=== PATIENT | female | born 2000 | race Two or more races ===

== ENCOUNTER 2020-11-08 05:07 | Inpatient (IN) | payer SELFPAY ==
[~2020-11-08] VITALS: Ht 170.2 cm; Wt 77.6 kg
[2020-11-08] VITALS (8 sets, daily range): BP systolic 51–113; BP diastolic 59–69
--- NOTE | 2020-11-08 05:20 | NUR ---
0520 20 YO WITH EDC 11/11/20 AT 39.4 WEEKS GESTATION. HX VAGINAL DELIVERIES X2. NO CARE. PRESENTS TO LABOR AND DELIVERY WITH COMPLAINTS OF LABOR CONTRACTIONS.6 CM DILATION ON ARRIVAL TO UNIT. ADMITTED FOR LABOR.
[2020-11-08] MEDS ORDERED: MAG HYDROX/ALUMINUM HYD/SIMETH 30 ML ORAL.SUSP PO PRN ×2 (05:45→11:30)
[2020-11-08] MEDS ORDERED: ACETAMINOPHEN 325 MG TABLET. PO PRN ×2 (05:45→11:30)
[2020-11-08] MEDS ORDERED: IV RINGERS,LACTATED 1000ML 1,000 ML IV SCH (05:45)
[2020-11-08] MEDS ORDERED: TERBUTALINE 1 MG/ML VIAL. SQ PRN (05:45)
[2020-11-08] MEDS ORDERED: LIDOCAINE 1% PF 30 ML VIAL. INJ PRN (05:45)
[2020-11-08] MEDS ORDERED: DOCUSATE SODIUM 283 MG/5 ML ENEMA. PR PRN (05:45)
[2020-11-08] MEDS ORDERED: ONDANSETRON PF 4 MG/2 ML VIAL. IVP PRN (05:45)
[2020-11-08] MEDS ORDERED: 0.9 % SODIUM CHLORIDE 10 ML DISP.SYRIN. IV PRN ×2 (05:45→11:30)
[2020-11-08] MEDS ORDERED: OXYTOCIN 30 UNIT/500 ML PREMIX 500 ML IV PRN ×3 (05:45→11:30)
[2020-11-08 05:58] LABS: BASO % 0 % (0-3); EOS # 0.3 x10^3/uL (0.0-0.7); EOS % 3 % (0-3); HEMATOCRIT 36.1 % (36.0-47.0); HEMOGLOBIN 12.2 g/dL (12.0-15.5); LYMPH # 2.6 x10^3/uL (1.0-4.8); LYMPH % 31 % (24-48); MEAN CORPUSCULAR HEMOGLOBIN 26 pg (25-35); MEAN CORPUSCULAR HGB CONC 34 g/dL (31-37); MEAN CORPUSCULAR VOLUME 78 fL (79-100); MONO # 0.5 x10^3/uL (0.0-1.1); MONO % 6 % (0-9); NEUT # 5.1 x10^3/uL (1.8-7.7); NEUT % 60 % (31-73); PLATELET COUNT 253 x10^3/uL (140-400); RED BLOOD COUNT 4.65 x10^6/uL (3.50-5.40); RED CELL DISTRIBUTION WIDTH 28.5 % (11.5-14.5); WHITE BLOOD COUNT 8.5 x10^3/uL (4.0-11.0)
[2020-11-08] MEDS ORDERED: OXYTOCIN PREMIX 30 UNIT/500 ML NS BAG. IV ONE (06:15)
[2020-11-08] MEDS ORDERED: PENICILLIN G K 5,000,000 UNIT in IV DEXTROSE 5% 100ML 100 ML IV ONE (07:00)
--- NOTE | 2020-11-08 07:00 | PDOC1 ---
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 She states that her ctxs began at 2300. The pt began her care in [place]. She reports having about 8 visits. She just recently moved to the [facility] and has not established care yet. PMH: Denies PSH: Jenae Meds: none All: NKDA OBHx: 2 x TSVD SH: no tob, no EtOH FH: noncontributory Medications: Meds: Current Medications Medications (Trade) Dose Ordered Sig/Patricia Route PRN Reason Start Time Stop Time Status Last Admin Dose Admin Ringer's Solution 1,000 ml @ 125 mls/hr Q8H IV 11/08/20 05:45 11/08/20 06:29 Penicillin G Potassium [id number] unit/Dextrose 100 ml @ 100 mls/hr 1X ONCE IV 11/08/20 07:00 11/08/20 07:59 11/08/20 06:32 Allergies: Coded Allergies: No Known Drug Allergies (Unverified , 11/08/20) no pnc Physical Exam: PE: GENERAL: No apparent distress. Alert and oriented. HEENT: Head normocephalic, atraumatic. NECK: Supple LUNGS: Clear to auscultation. HEART: RRR, S1, S2 present, pulses intact ABDOMEN: Soft, positive bowel sounds. EXTREMITIES: No cyanosis or edema. NEUROLOGIC: Normal speech, normal tone PSYCHIATRIC: Normal affect, normal mood. SKIN: No ulceration. FHT: 130s +acels/no decels/mLTV Maria Stein: 2 min : 6/C/-1 Labs: Laboratory Tests Test 11/08/20 05:36 SARS-CoV-2 Antigen (Rapid) Negative (NEGATIVE) Assessment & Plan: A/P 20y @ 39.4 by u/s per pt 1.) Active labor 2.) No care in the states drop in labs ordered 3.) Fetus cat I FHT 4.) GBS unk no risk factors RHYS GRAHAM MD Nov 08, 2020 07:00
[2020-11-08 07:04] LABS: BILIRUBIN,URINE NEGATIVE (NEG); CLARITY,URINE CLEAR; COLOR,URINE YELLOW; NITRITE,URINE NEGATIVE (NEG); PH,URINE 7.5 (<5.0-8.0); PROTEIN,URINE NEGATIVE (NEG-TRACE)
[2020-11-08 07:27] LABS: BACTERIA,URINE FEW /HPF (0-FEW)
[2020-11-08] MEDS ORDERED: PENICILLIN G K 2,500,000 UNIT in IV DEXTROSE 5% 50 ML IV SCH (11:00)
[2020-11-08] MEDS ORDERED: oxyCODONE/APAP 5/325 1 TAB TABLET PO PRN (11:30)
[2020-11-08] MEDS ORDERED: MAGNESIUM HYDROXIDE 2,400 MG/30 ML ORAL.SUSP. PO PRN (11:30)
[2020-11-08] MEDS ORDERED: MMR per PROTOCOL. MC PRN (11:30)
[2020-11-08] MEDS ORDERED: BENZOCAINE 20% TOPICAL AEROSOL SPRAY 57GM CAN. TP PRN (11:30)
[2020-11-08] MEDS ORDERED: PHENYLEPH/MINERAL OIL/PETROLAT RECTAL OINTMENT TUBE. RC PRN (11:30)
[2020-11-08] MEDS ORDERED: HYDROCORTISONE 1% TOPICAL OINTMENT 30GM TUBE. TP PRN (11:30)
[2020-11-08] MEDS ORDERED: diphenhydrAMINE HCL 25 MG CAPSULE PO PRN (11:30)
[2020-11-08] MEDS ORDERED: TDaP (Adacel) per PROTOCOL. MC PRN (11:30)
[2020-11-08] MEDS ORDERED: ZOLPIDEM 5 MG TABLET. PO PRN (11:30)
[2020-11-08] MEDS ORDERED: SIMETHICONE 80 MG TAB.CHEW PO PRN (11:30)
[2020-11-08] MEDS: IBUPROFEN 400 MG TABLET. PO PRN ×2 (11:32→22:14)
--- NOTE | 2020-11-08 11:52 | PDOC ---
VAGINAL DELIVERY DATE DATE: 11/08/20 TIME: 11:51 TIME Patient delivered a viable male infant over intact perineum at 0852. Wt 7 lb 8 oz. Apgars 8/9. Placenta delivered spontaneously, intact with 3VC. No lacerations noted. Good hemostasis noted. 20 U of Pit given with IVF. EBL 300cc. WEIGHT Weight [ ] RHYS GRAHAM MD Nov 08, 2020 11:51
[2020-11-09] VITALS (7 sets, daily range): BP systolic 98–128; BP diastolic 58–78
[2020-11-09] MEDS: FERROUS SULFATE 325 MG TABLET. PO SCH (08:00)
[2020-11-09 08:02] LABS: HEMOGLOBIN 10.4 g/dL (12.0-15.5); RED BLOOD COUNT 4.09 x10^6/uL (3.50-5.40); RED CELL DISTRIBUTION WIDTH 28.7 % (11.5-14.5); WHITE BLOOD COUNT 10.3 x10^3/uL (4.0-11.0)
[2020-11-09] MEDS: DOCUSATE SODIUM 100 MG CAPSULE. PO PRN ×2 (11:22→19:56)
[2020-11-09] MEDS: IBUPROFEN 400 MG TABLET. PO PRN ×2 (11:22→19:55)
[2020-11-09] MEDS: PRENATAL MULTIVITAMIN TABLET. PO SCH (11:23)
--- NOTE | 2020-11-09 12:54 | PDOC ---
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 Jeyson PO. Voiding. Minimal lochia. Objective: Vital Signs: Vital Signs Date Time Temp Pulse Resp B/P (MAP) Pulse Ox O2 Delivery O2 Flow Rate FiO2 11/08/20 12:15 98.4 60 20 113/63 (80) 98.4 11/08/20 19:30 97 11/09/20 04:49 Room Air Vital Signs Date Time Temp Pulse Resp B/P (MAP) Pulse Ox O2 Delivery O2 Flow Rate FiO2 11/09/20 06:00 18 Room Air 11/09/20 04:17 98.9 74 128/78 (95) 98 98.9 Labs: Laboratory Tests Test 11/09/20 07:45 White Blood Count 10.3 x10^3/uL (4.0-11.0) Red Blood Count 4.09 x10^6/uL (3.50-5.40) Hemoglobin 10.4 g/dL (12.0-15.5) L Hematocrit 32.0 % (36.0-47.0) L Mean Corpuscular Volume 78 fL (79-100) L Mean Corpuscular Hemoglobin 26 pg (25-35) Mean Corpuscular Hemoglobin Concent 33 g/dL (31-37) Red Cell Distribution Width 28.7 % (11.5-14.5) H Platelet Count 216 x10^3/uL (140-400) Laboratory Tests 11/09/20 07:45 Laboratory Tests 11/09/20 07:45 Physical Exam: GENERAL: No apparent distress. Alert and oriented. HEENT: Head normocephalic, atraumatic. NECK: Supple LUNGS: Clear to auscultation. HEART: RRR, S1, S2 present, pulses intact ABDOMEN: Soft, positive bowel sounds. EXTREMITIES: No cyanosis or edema. NEUROLOGIC: Normal speech, normal tone PSYCHIATRIC: Normal affect, normal mood. SKIN: No ulceration. FFNT below umb No C/C/E Assessment & Plan: A/P 20y PPD #1 s/p 1.) PP doing well 2.) No care in the states drop in labs wnl, Rub pending 3.) Hgb 12.2 -> 10.4 4.) Cont PP care RHYS GRAHAM MD Nov 09, 2020 12:54
[2020-11-10 02:30] VITALS: BP 122/76
[2020-11-10] MEDS: FERROUS SULFATE 325 MG TABLET. PO SCH (08:37)
[2020-11-10] MEDS: PRENATAL MULTIVITAMIN TABLET. PO SCH (08:37)
[2020-11-10 09:00] VITALS: BP 102/67
[2020-11-10] MEDS ORDERED: DOCU-109 PO (12:20)
[2020-11-10] MEDS ORDERED: IBUP-1060 PO (12:20)
[2020-11-10 14:30] VITALS: BP 103/68
--- NOTE | 2020-11-10 15:20 | NUR ---
Discharge Note: LYDIA [id number] SO LND Discharge instructions and discharge home medications reviewed with Patient and a copy given. All questions have been answered and understanding verbalized. The following instructions and handouts were given: F/U with Dr. Huntley within 6 weeks at either [place] or [facility] . Discontinued lines and drains: Peripheral IV intact. Patient discharged to Home or Self Care with Family Friend via Wheelchair.
--- NOTE | 2020-11-10 15:30 | PDOC ---
NETWORK LIAISON PROGRESS NOTE Date of Service: DATE: 11/10/20 TIME: 15:30 Subjective: Pt with good pain control. Jeyson PO. Voiding. Minimal lochia. Objective: Vital Signs: Vital Signs Date Time Temp Pulse Resp B/P (MAP) Pulse Ox O2 Delivery O2 Flow Rate FiO2 11/09/20 08:20 98.2 65 18 102/63 (76) 99 Room Air 98.2 11/09/20 14:19 98.0 Vital Signs Date Time Temp Pulse Resp B/P (MAP) Pulse Ox O2 Delivery O2 Flow Rate FiO2 11/10/20 14:30 98.3 85 16 103/68 (80) 98.3 11/10/20 09:00 100 Room Air 11/09/20 19:55 98.0 Physical Exam: GENERAL: No apparent distress. Alert and oriented. HEENT: Head normocephalic, atraumatic. NECK: Supple LUNGS: Clear to auscultation. HEART: RRR, S1, S2 present, pulses intact ABDOMEN: Soft, positive bowel sounds. EXTREMITIES: No cyanosis or edema. NEUROLOGIC: Normal speech, normal tone PSYCHIATRIC: Normal affect, normal mood. SKIN: No ulceration. FFNT below umb No C/C/E Assessment & Plan: A/P 20y PPD #2 s/p 1.) PP doing well 2.) No care in the states drop in labs wnl, Rub still pending 3.) Hgb 12.2 -> 10.4 4.) D/c home RHYS GRAHAM MD Nov 10, 2020 15:30
--- NOTE | 2020-11-10 15:48 | DS ---
DATE OF DISCHARGE: 11/10/2020 ADMISSION DIAGNOSES: 1. Intrauterine at 39 weeks and 4 days by ultrasound, per patient. 2. Active labor. 3. [place] care in the [place]. 4. Group B streptococcus unknown with no risk factors. DISCHARGE DIAGNOSES: 1. Intrauterine at 39 weeks and 4 days by ultrasound, per patient. 2. Active labor. 3. [place] care in the [place]. 4. Group B streptococcus unknown with no risk factors. PROCEDURE: Spontaneous vaginal delivery. BRIEF HOSPITAL COURSE: The patient is a 20-year-old 3, para 2-0-0-2 who presented to Labor and Delivery at 39 weeks and 4 days by ultrasound per the patient with contractions. The patient stated that her contractions began at 2300 hours. The patient began her care in [place] and had about 8 visits. She has recently moved to the [facility]. On presentation, the patient was found to be 6 cm. The patient progressed well and ultimately delivered by vaginal delivery, see delivery note for full detail. By day #2, the patient was meeting all discharge criteria and was subsequently discharged home. Of note, the drop in labs that were obtained, her rubella was still pending. The remainder of her labs were all normal. The patient's hemoglobin on admission was 12.2 and on discharge was found to be 10.4. DISCHARGE INSTRUCTIONS: The patient was told not to lift anything greater than 20 pounds, have pelvic rest for 6 weeks. CALL IF: The patient was to call if she had fevers, chills, nausea, vomiting, abdominal pain or any additional questions or concerns. FOLLOWUP APPOINTMENT: The patient is to follow up in 6 weeks' time. She was [place] [facility] [place]. DISCHARGE MEDICATIONS: The patient was given a prescription for Motrin 800 mg, 30 pills; Colace 100 mg, 30 pills. RHYS GRAHAM MD DR: REAL/wolfgang JOB#: [id number] / [id number]
[2020-11-10 19:18] LABS: RUBELLA IGG ANTIBODY <0.90 index (Immune >0.99)
== END 2020-11-10 15:20 | disposition home or self-care (01) | DRG 807 ==
LOC: OBSVTOIN 05:07 → 3 SO LND 05:07
PROVIDERS: ADMIT Obstetrics & Gynecology; ATTEND Obstetrics & Gynecology
PROC: 10E0XZZ Delivery of Products of Conception, External Approach (ICD-10-PCS; principal; 2020-11-08)
DX: O80 Encounter for full-term uncomplicated delivery (principal); Z37.0 Single live birth; Z3A.39 39 weeks gestation of pregnancy; Z20.822 Contact with and (suspected) exposure to COVID-19
CPT/HCPCS: 36415; 81001; 85025; 85027; 86592; 86703; 86762; 86787; 86803; 86850; 86900; 86901; 87340; 87426; G0378; G0379; J2540; J2590; J7060; J7120; U0003